=== PATIENT | male | born 1955 | race Caucasian/White ===

== ENCOUNTER → 2016-10-28 | Outpatient (CLI) | payer OTHER ==
[~2016-10-28] MED LIST: ASPEC325 PO; ATOR-24 PO; CLOP1TAB15 PO; EFFSR150 PO; EFFSR75 PO; LPR25 PO; LSN25 PO
--- NOTE | 2016-10-29 06:09 | PAP/PSG TECHNICIAN REPORT ---
[facility] Fire Engine Operator Polysomnogram Report Study name: None Report date: 10/29/2016 Study date: 10/28/2016 Referring Physician: Soren Paige M.D. Name: ANGELO GRANADOS Interpreting Physician: Malcolm Bernal M.D. Date of : 1955 Fire Engine Operator: BREN Carver. Sex: Male Age: 61 StudyType: PSG Weight: 230 lbs Height: 61 years, Height 5' 9" Neck Circum: 18.5inches BMI: 33.96 Medications: Crestor 40mg, [id number], Prinivil 20mg, Lamictal 150mg, Zetia 10mg, ASA 81mg, Effexor XR 150mg Patient History Study started on room air with no ETCO2 monitoring in room #6. 61 yr old male here tonight for a possible split psg. He was diagnosed with JORGE over 10 years ago but stopped using cpap because his full face mask was uncomfortable. He has been having some cognitive dysfunctions and non-restorative sleep. He awakens with a dry throat and mouth. He was recently diagnosed with hypothyroidism and he does feel a little less fatigued since he started taking Levoxyl but never fully rested. His ESS=7/24. Neck circ=18.5inches. Parameters Monitored NPSG: E1-M2, E2-M1, Fp1-M2, Fp2-M1, F3-M2, F4-M2, F4-M1, C3-M2, C4-M2, C4-M1, O1-M2, O2-M2, O2-M1, T3-M2, T4-M1, P3-M2, P4-M1, CHIN1, CHIN2, HR, EKG, Legs, PFLOW, SNOR, FLOW, CFLOW, Tidal Volume, THOR, ABDO, SpO2, PLTH, CPRESS, ETCO2 Wave, ETCO2, pH Sleep Architecture Sleep Stages Time at Lights Off 10:07:00 PM STAGES Time (min.) TST (%) Time at Lights On 5:34:30 AM Wake 244.5 -- Total Recording Time (TRT) 447.50 min. N1 27.5 14 Total Sleep Period (TSP) 381.5 min. N2 125.5 62 Total Sleep Time (TST) 203.0min. N3 40.0 20 Awake Time 244.5 min. REM 10.0 5 Wake after Sleep Onset 183.0 min. Sleep Efficiency (SE) 45 % Sleep Onset Latency (LETTY) 61.5 min. Number of Stage 1 Shifts None Awakenings 33 Stage Changes 100 Number of REM periods 6 REM 10.0 5 REM Latency 365.0 min. NREM 193.0 95 Body Position Analysis Supine Right Left Side Prone Vertical Total Sleep Time (min.) 96.0 24.5 127.0 151.50 0.0 0.0 Total Sleep Time (%) 25% 12% 63% 75 0% N/A% Total Sleep Time REM (min.) 8.0 0.0 2.0 None 0.0 0.0 Total Sleep Time NREM (min.) 43.5 24.5 125.0 None 0.0 0.0 Intermittent Wake (min.) 44.5 46.3 153.8 None 0.0 0.0 Total Sleep Period (%) 24% None None None None None Arousals Myoclonus (PLM) * Events Count Index Events Count Index Spontaneous 17 5 Events Awake (PLMW) 123 30.2 Respiratory 9 3.0 Events Asleep w/ Arousal (PLMA) 13 3.8 PLM 12 4 Events Asleep w/o Arousal (PLMS) 301 89.0 Snoring 9 3 Total Asleep 314 92.8 Total 47 14 Total 437 59 Respiratory Analysis * CA OA MA CH H RERA Total Count 0 4 0 0 10 4 14 Index 0.0 1.2 0.0 0 3.0 1 5.3 Mean Duration 0.0 14.8 0.0 0.00 24.3 26.6 22.7 Longest Duration 0.0 18.5 0.0 0.00 0.0 34.1 40.4 Respiratory Event Summary Total Supine ~Supine Right Left Prone REM NREM Apneas Count 4 1 3 0 3 N/A 0 4 Index 1.2 1 1 0.0 1.4 N/A 0 1 Hypopneas (4% Desat) Count 10 6 4 0 4 N/A 0 10 Index 3.0 7.0 2 0.0 1.9 N/A 0.0 3.1 Apneas & All Hypopneas Count 14 7 7 0 7 N/A 0 14 Index 4.1 8 3 0 3 N/A 0.0 4.4 Respiratory Events (Computer Operations Manager+All Hyp+RERA) Count 14 9 9 0 9 N/A 0 14 Index 5.3 10 4 0.0 4.3 N/A 0.0 5.6 Respiratory Related Arousal Count 9 9 4 0 4 N/A 0 10 Index 3.0 7 2 0 2 N/A 0 3 Snoring Analysis Supine Right Left Prone REM NREM Total Snore duration 23.5 min Snores count 231 59 706 N/A 5 991 996 Snore mean duration 1.4 Sec Snores index 269 144 334 N/A 30.0 308.1 294.4 TST with snoring (%) 11.6% Desaturation Event Summary: Minimum %SpO2 Event Count Mean/Min/Max Duration(sec.) Desaturation Index % Time In Bed > 90 17 34.9 / 8.0 / 60.0 3.8 63.8 86 - 90 5 14.9 / 4.3 / 32.0 2.0 36.1 81 - 85 0 N/A 0.0 0.1 76 - 80 0 N/A 0.0 0.0 71 - 75 0 N/A 0.0 0.0 66 - 70 0 N/A 0.0 0.0 61 - 65 0 N/A 0.0 0.0 56 - 60 0 N/A 0.0 0.0 51 - 55 0 N/A 0.0 0.0 < 50 0 N/A 0.0 0.0 Total REM NREM Awake <50% 0.0 min. 0.0 min. 0.0 min. 0.0 min. 51 - 60% 0.0 min. 0.0 min. 0.0 min. 0.0 min. 61 - 70% 0.0 min. 0.0 min. 0.0 min. 0.0 min. 71 - 80% 0.1 min. 0.0 min. 0.0 min. 0.1 min. 81 - 90% 153.7 min. 6.2 min. 52.3 min. 95.2 min. 91 - 100% 270.5 min. 3.7 min. 135.8 min. 131.0 min. Average 91 90 91 91 Minimum SpO2 76 88 83 76 Desaturation Event Index 2.7 0.0 4.4 1.7 # Desat. Events below 89% 7 N/A 3 4 Time(%) with Saturation below 89% 3.0 0.1 1.4 1.5 Time(min.) with Saturation below 89% 12.6 0.5 5.8 6.2 Time (mins) REM (mins) NREM (mins) % of TST SpO2 Below 90% 12 N/A N12 10.0 SpO2 Below 88% 1 0 0 0 Heart Rate Analysis Min (bpm) Max (bpm) Average (bpm) Awake 31 300 70 NREM 31 127 67 REM 35 127 66 Overall 31 127 67 Supplemental O2 Values Minimum O2 level: None Value Start Time End Time Fire Engine Operator Comments Mr. Granados slept in the right, left and supine positions. No cardiac arrhythmia noted. Some leg movements were noted. No bruxism noted. Snoring was noted and scored as a 3 on a scale of 1 through 5. (0=no snoring, 5=snoring loud enough to be heard through a closed door or down the miranda way) He did not use the restroom during the night. He stated that he slept worse than when at home. He was very restless and kept pulling wires and sensors off the entire night. The final report will be interpreted and signed by a sleep physician. The completed physician report will then be placed in the patient medical record. Therapy (cm H2O) 0 TIB (min.) 447.5 TST (min.) 203.0 Sleep Onset (min.) 61.5 REM Onset From Sleep (min.) 365.0 Sleep Efficiency % 45 Wakefulness (%) 55 Wakefulness (min.) 244.5 NREM 1 (%) 14 NREM 1 (min.) 27.5 NREM 2 (%) 62 NREM 2 (min.) 125.5 NREM 3 (%) 20 NREM 3 (min.) 40.0 REM (%) 5 REM (min.) 10.0 # Arousals 47 Arousal Index 14 # Snore 996 Snore Index 294.4 AHI 4.1 AHI Supine 8 AHI Non-Supine 3 NREM AHI 4.4 REM AHI 0.0 RDI 5.3 # Obstructive Apnea 4 # Central Apnea 0 # Mixed Apnea 0 # Hypopneas 10 RERAs 4 Total Respiratory Events 19 Time Below SpO2 89% (min.) 6.3 Mean NREM SpO2 (%) 91 Mean REM SpO2 (%) 90 Mean Sleep SpO2 (%) 91 Min NREM SpO2 (%) 83 Min REM SpO2 (%) 88 Position Supine (min.) 96.0 Position Non-supine (min.) 151.5 LM Index Sleep 92.8 LM Index NREM 97.6 LM Index REM 0.0 Mean Heart Rate (bpm) 67 Min Heart Rate (bpm) 31
--- NOTE | 2016-11-03 16:50 | POLYSOMNOGRAPH REPORT ---
REFERRING PERSON: Dr. Soren Paige. INTERPRETING PHYSICIAN: Dr. Malcolm Bernal. MIXING TECHNICIAN: Martina Villarreal. Mr. Armijo is a 61-year-old male sent for a possible split night sleep study. He was diagnosed with obstructive sleep apnea over 10 years ago but stopped using a CPAP because his full face mask was uncomfortable. He has now been having some cognitive dysfunction as well as nonrestorative sleep and he was sent back to the sleep lab for reevaluation. He has been recently diagnosed with hypothyroidism and does feel a little less fatigued since starting Levoxyl but he has never fully rested. His [place]ef[place] Sleepiness Scale score on the evening of this study is 7. BMI is 33.96. Mr. Armijo's total sleep period time was 381.5 minutes. Total sleep time was only 203 minutes. Sleep efficiency was 45%. Latency to sleep onset was 61.5 minutes with wake after sleep onset of 183 minutes. Total non-REM sleep time was 193 minutes. He spent 14% of that time in N1 sleep, 62% in N2 sleep and 20% in N3 sleep. REM latency was markedly prolonged at 365 minutes. Total REM sleep time was 10 minutes or 5% of total sleep time. There were 47 cortical arousals from sleep. 17 of these arousals were spontaneous, 8 or 9 were due to respiratory events, 12 due to periodic limb movements of sleep and 9 were due to snoring. There were 314 periodic limb movements noted on this test. Limb movement index was 92.8. Limb movement with arousal index was 3.8. There were no central, 4 obstructive and no mixed apnea on this test. There were 10 hypopneas and 4 RERA. Apnea-hypopnea index was normal at 4.1. He did have mild sleep apnea when he slept on his back with an AHI of 8. 996 snoring events were recorded. Total sleep time with snoring was 11.8%. Mean saturation during sleep was 91%. Saturations were less than 89% for 12.6 minutes of recorded time. These desaturations were very, very mild. There was no cardiac ectopy noted on this study. Heart rates ranged from a low of 31 beats per minute to a high of 127 beats per minute during sleep. IMPRESSION AND PLAN: A 61-year-old male without evidence of sleep apnea on this sleep study, although he had some positional sleep apnea on his back with an apnea-hypopnea index of 8. However, he did have some mild nocturnal hypoxemia that was noted, although this hypoxemia was very minimal. 1. This patient should sleep non-supine treatment to ensure the 3 respiratory events that he did have resolve. An n.p.o. could be performed with non-supine sleep to reassess the need for potential oxygen supplementation in this patient.
== END | disposition home or self-care (01) ==
LOC: C.NEUR 21:00
PROVIDERS: ATTEND Physical Medicine & Rehabilitation
DX: G47.39 Other sleep apnea (principal); I25.2 Old myocardial infarction; F32.9 Major depressive disorder, single episode, unspecified